=== PATIENT | male | born 1955 | race Caucasian/White ===

== ENCOUNTER 2022-12-15 07:19 | Day surgery (SDC) | payer MEDICARE, OTHER ==
[~2022-12-15 07:19] MED LIST: LEVOTHYROXIN75 MC1 PO; MAGNESIUM OXID400 M1 PO; SIMVASTATIN20 M1 PO; ZYRTEC10 MG PO
[2022-12-15 09:20] VITALS: BP 122/75
== END 2022-12-15 09:13 | disposition home or self-care (01) ==
LOC: ENDO 07:19 → ORM 08:30 → ENDO 09:00 → ORM 09:00 → ENDO 09:13
PROVIDERS: ATTEND Surgery
PROC: 0DBH8ZX Excision of Cecum, Via Natural or Artificial Opening Endoscopic, Diagnostic (ICD-10-PCS; principal; 2022-12-15)
PROC: 0DBL8ZX Excision of Transverse Colon, Via Natural or Artificial Opening Endoscopic, Diagnostic (ICD-10-PCS; 2022-12-15)
PROC: 0DBM8ZX Excision of Descending Colon, Via Natural or Artificial Opening Endoscopic, Diagnostic (ICD-10-PCS; 2022-12-15)
DX: Z12.11 Encounter for screening for malignant neoplasm of colon (principal); D12.0 Benign neoplasm of cecum; D12.4 Benign neoplasm of descending colon; D12.3 Benign neoplasm of transverse colon; K57.30 Diverticulosis of large intestine without perforation or abscess without bleeding; K64.8 Other hemorrhoids; Z80.0 Family history of malignant neoplasm of digestive organs; Z86.010 Personal history of colon polyps